=== PATIENT | male | born 1995 | race Caucasian/White ===

== ENCOUNTER 2023-12-03 13:47 | Outpatient (REF) | payer BC, SELFPAY ==
[2023-12-03 18:54] LABS: Abs Immature Grans 0.02 10^3/uL (0.0-0.06); Absolute Basophil Count 0.07 10^3/uL (0.0-0.2); Absolute Eosinophil Count 0.19 10^3/uL (0.0-0.7); Absolute Lymphocyte Count 4.38 10^3/uL (1.2-3.4); Absolute Monocyte Count 0.85 10^3/uL (0.1-0.8); Absolute Neutrophil Count 5.17 10^3/uL (1.2-6.7); Basophils % 0.7 %; Eosinophils % 1.8 %; HCT 46.3 % (40.0-50.0); HGB 16.3 g/dL (13.5-17.5); Immature Grans % 0.2 %; MCH 30.4 pg (27.0-33.0); MCHC 35.2 % (32.0-36.0); MCV 86 fL (80-95); MPV 10.4 fL (8.0-11.0); Neutrophils % 48.3 %; Platelet Count 308 10^3/uL (130-400); RBC 5.36 10^6/uL (4.36-5.78); RDW 11.5 % (11.8-14.1); RDW-SD 36.2 fL; WBC 10.68 10^3/uL (4.4-10.8)
[2023-12-03 19:07] LABS: Iron 64 ug/dL (65-175); Total Iron Binding Capacity 299 ug/dL (250-450); Transferrin Sat 21 % (20-55)
[2023-12-03 19:13] LABS: Hemoglobin A1C 5.4 % (<5.7)
[2023-12-03 19:22] LABS: ALT 65 U/L (16-63); AST 27 U/L (15-37); Albumin 3.9 g/dL (3.4-5.0); Alkaline Phosphatase 93 U/L (46-116); Anion Gap 7.5 mmol/L (3-11); BUN 21 mg/dL (7-18); CO2 27.5 mmol/L (21.0-32.0); CREATININE 0.8 mg/dL (0.70-1.30); Calcium 9.2 mg/dL (8.5-10.1); Calculated LDL 191 mg/dL (<100); Chloride 106 mmol/L (98-107); Cholesterol 252 mg/dL (<200); Estimated GFR 123.63 (mL/min/1.73m2); Ferritin 153 ng/mL (26-388); Folate 9.2 ng/mL (8.6-20.0); Glucose 100 mg/dL (74-106); HDL Cholesterol 37 mg/dL (40-60); Potassium 4.6 mmol/L (3.5-5.1); Sodium 141 mmol/L (136-145); Total Protein 7.4 g/dL (6.4-8.2); Triglyceride 124 mg/dL (<150); Vitamin B12 345 pg/mL (193-986); Vitamin D 25 Total 12.4 ng/mL (30-100)
[2023-12-04 20:45] LABS: Hepatitis C Ab w Rflx HCV PCR Negative (Negative)
[2023-12-04 20:46] LABS: HIV-1/2 Ag & Ab Screen Negative (Negative)
== END 2023-12-03 13:48 | disposition home or self-care (01) ==
LOC: NCHCN 13:47
PROVIDERS: PCP Physician Assistant; Visit Provider Physician Assistant
DX: R53.83 Other fatigue (principal); E78.5 Hyperlipidemia, unspecified; E55.9 Vitamin D deficiency, unspecified; R79.89 Other specified abnormal findings of blood chemistry; R94.5 Abnormal results of liver function studies; E66.9 Obesity, unspecified; Z11.4 Encounter for screening for human immunodeficiency virus [HIV]; Z11.59 Encounter for screening for other viral diseases
CPT/HCPCS: 80053; 80061; 82306; 86803; 87389; 82607; 82728; 82746; 83036; 83540; 83550; 84443; 85025

== ENCOUNTER 2024-06-25 19:28 | Emergency (ER) | payer BC, SELFPAY ==
[2024-06-25 19:37] VITALS: BP 150/83; PULSE 96; RESP 16; TEMP 36.9; O2SAT 95
[2024-06-25 20:03] LABS: Bilirubin Negative (Negative); Blood Negative (Negative); Clarity Clear (Clear); Glucose Negative (Negative); Ketones Negative (Negative); Leukocyte Esterase Negative (Negative); Nitrite Negative (Negative); Specific Gravity >= 1.030 (1.005-1.025); Urobilinogen 0.2 mg/dL (Up to 0.2)
--- NOTE | 2024-06-25 20:29 | W.ED.GENAD ---
Discharge Plan Disposition Patient Disposition: Home Discharge Details Clinical Impression: Abdominal pain, lower Primary Care Provider: Eveline Morgan ED Provider: Mahi Kaba Home Meds and New Rx's Prescriptions: New ondansetron 4 mg tablet,disintegrating 4 mg PO Q6H PRN (Reason: nausea and vomiting) Qty: 30 0RF Discharge Instructions Instructions: Abdominal pain Additional Instructions: Your urinalysis does not demonstrate any signs of infection. Your symptoms may be secondary to the increased fiber, and you may have some early constipation signs. You can take MiraLAX if you feel like this might help This may also be symptoms of an early GI infection. There is significant GI viral illness going on in the community that is associated with vomiting and diarrhea. You may develop the symptoms. Monitor your symptoms closely, take nausea medication as needed. Follow-up with your PCP. Return to the emergency department with severe pain or not tolerating anything by mouth HPI General Date/Time Provider Initiated Documentation: 06/25/24 19:46. Limitations to Documentation: no limitations. Information obtained by: patient. HPI Narrative: 29-year-old gentleman without significant past medical history presents for evaluation of lower abdominal pain. He reports the onset of symptoms yesterday. He states that he has pain in his lower abdomen. He denies any urinary frequency or pain with urination. Denies any blood in his urine. He reports that he has had some mild nausea but no vomiting, no diarrhea or fever. He states that he has been taking an increased amount of fiber recently and had decreased food intake. Related Data Home Medications ?Medication ?Instructions ?Recorded ?Confirmed ondansetron 4 mg disintegrating 4 mg PO Q6H PRN nausea and 06/25/24 tablet vomiting #30 tabs Previous Rx's ?Medication ?Instructions ?Recorded ondansetron 4 mg disintegrating 4 mg PO Q6H PRN nausea and 06/25/24 tablet vomiting #30 tabs General Stated Complaint: Urinary KATHLEEN: 3 Exam Narrative Exam Narrative: Review of Systems: All systems reviewed & are unremarkable except as noted in HPI and below Well-developed, no acute distress NCAT Unlabored respiratory effort Nondistended abdomen , soft, mild suprapubic tenderness no guarding or rebound Course Vital Signs Vital signs: Vital Signs Temperature 36.9 C 06/25/24 19:37 Pulse 96 H 06/25/24 19:37 Respiratory Rate 16 06/25/24 19:37 Blood Pressure 150/83 H 06/25/24 19:37 Pulse Oximetry 95 06/25/24 19:37 Temperature 36.9 C 06/25/24 19:37 Temperature Source Tympanic 06/25/24 19:37 Pulse 96 H 06/25/24 19:37 Respiratory Rate 16 06/25/24 19:37 Blood Pressure 150/83 H 06/25/24 19:37 Blood Pressure Position Sitting 06/25/24 19:37 Pulse Oximetry 95 06/25/24 19:37 Oxygen Delivery Method Room Air 06/25/24 19:37 Oxygen Flow Rate 0 06/25/24 19:37 Pain Level 4 06/25/24 19:37 Lab/Test Results Lab/Test Results: Laboratory Tests Range/Units 06/25/24 19:56 Urine Color (Yellow) Yellow Urine Clarity (Clear) Clear Urine pH (5-8) 6.0 Ur Specific [place] (1.005-1.025) >= 1.030 H Urine Protein (Neg-Trace) mg/dL Negative Urine Ketones (Negative) mg/dL Negative Urine Blood (Negative) Negative Urine Nitrite (Negative) Negative Urine Bilirubin (Negative) Negative Urine Urobilinogen (Up to 0.2) mg/dL 0.2 Ur Leukocyte Esterase (Negative) Negative Urine Glucose (Negative) mg/dL Negative Medical Decision Making Urgent evaluation of lower abdominal pain. Patient has a benign abdominal exam and is afebrile and otherwise hemodynamically stable. He said some mild nausea. Initial differential includes early viral illness, UTI, doubt kidney stone, doubt acute intra-abdominal pathology. Given his mild suprapubic tenderness, a urinalysis was obtained and this was negative for infection. Patient has been having some dietary changes and I suspect this may be causing some of his symptoms. He was prescribed nausea medicine. Strict return precautions advised. Follow-up with PCP if symptoms persist. Quality:SDOH Health Related Social Needs: No Data to Display PFSH All Active Problems Abdominal pain, lower (Acute) Social History Smoking/Tobacco Use Status: Current every day Tobacco Type: e-cigarettes and smokeless tobacco Smoking risk assessment performed?: Yes Alcohol Intake: never Drug use: Never Substance use type: does not use Do you feel safe at home: Yes Do you feel safe in your relationship?: Yes
[2024-06-29 11:17] LABS: Chlamydia Result Negative (Negative); GC Result Negative (Negative)
== END 2024-06-25 20:22 | disposition home or self-care (01) ==
LOC: ER 20:29
PROVIDERS: Registered Nurse Emergency; Emergency Provider Emergency Medicine; PCP Physician Assistant
DX: R10.30 Lower abdominal pain, unspecified (principal)
CPT/HCPCS: 87491; 87591; 99283; 81003